=== PATIENT | female | born 1945 | race Caucasian/White ===

== ENCOUNTER 2018-01-11 16:17 | Outpatient (CLI) | payer MEDICARE, BC ==
[2018-01-11 16:43] LABS: BASOPHILS # (AUTO) 0.1 10^3/uL (0.0-0.1); BASOPHILS % (AUTO) 0.8 %; EOSINOPHILS # (AUTO) 0.3 10^3/uL (0.0-0.7); HGB - HEMOGLOBIN 14.3 g/dL (12.0-16.0); LYMPHOCYTES # (AUTO) 4.2 10^3/uL (1.5-3.5); LYMPHOCYTES % (AUTO) 36.1 %; MEAN CORPUSCULAR HEMOGLOBIN 28.6 pg (27.0-31.0); MEAN CORPUSCULAR HGB CONC 32.9 g/dL (32.0-36.0); MEAN CORPUSCULAR VOLUME 86.9 fL (81.0-99.0); MEAN PLATELET VOLUME 8.5 fL (7.9-10.8); MONOCYTES # (AUTO) 0.8 10^3/uL (0.0-1.0); MONOCYTES % (AUTO) 6.4 %; NEUTROPHILS # (AUTO) 6.3 10^3/uL (1.5-6.6); NEUTROPHILS % (AUTO) 53.7 %; PLT - PLATELET COUNT 268 10^3/uL (130-450); RED CELL DISTRIBUTION WIDTH 13.8 % (12.0-15.0); WHITE BLOOD COUNT 11.8 x10^3/uL (4.8-10.8)
[2018-01-11 16:56] LABS: ALBUMIN 3.5 g/dL (3.2-5.5); BILIRUBIN,TOTAL 0.7 mg/dL (0.2-1.0); CREATININE 0.9 mg/dL (0.4-1.0)
== END 2018-01-11 16:18 | disposition home or self-care (01) ==
LOC: LAB 16:17
PROVIDERS: ATTEND Physician Assistant
DX: J18.9 Pneumonia, unspecified organism (principal); R07.89 Other chest pain
CPT/HCPCS: 36415; 80053; 84484; 85025

== ENCOUNTER 2018-04-04 15:24 | Outpatient (CLI) | payer MEDICARE, BC ==
--- NOTE | 2018-04-05 12:15 | Mammography Report ---
Reason: SCREENING MAMMO Procedure Date: 04/04/2018 Accession Number: [id number] / [id number] Procedure: MGN - Screening Mammo Dig Bilat CPT Code: FULL RESULT: EXAM: Screening Mammo Dig Bilat DATE: 04/04/2018 3:45 PM CLINICAL HISTORY: 72-year-old female for screening mammogram. TECHNIQUE: Bilateral CC and MLO views were obtained. COMPARISON: 04/25/2016, 04/19/2015, 08/19/2013, 06/17/2010. FINDINGS: The breasts demonstrate scattered fibroglandular densities bilaterally. No suspicious masses, clustered microcalcifications, or regions of architectural distortion are identified. IMPRESSION: Negative examination RECOMMENDATION: Routine annual screening unless otherwise clinically indicated. BIRADS CATEGORY 1: Negative STANDARD QUALIFYING STATEMENTS: 1. This examination was reviewed with the aid of Computer-Aided Detection (CAD). 2. A negative or benign imaging report should not delay biopsy if clinically suspicious findings are present. Consider surgical consultation if warranted. More than 5% of cancers are not identified by imaging. 3. Dense breasts may obscure an underlying neoplasm. 4. This examination was reviewed without the aid of 3D breast imaging (tomosynthesis).
== END 2018-04-04 15:25 | disposition home or self-care (01) ==
LOC: DI.N 15:24
DX: Z12.31 Encounter for screening mammogram for malignant neoplasm of breast (principal)
CPT/HCPCS: 77067

== ENCOUNTER 2019-01-12 08:00 | Outpatient (CLI) | payer MEDICARE, BC ==
[2019-01-15 19:34] LABS: BASOPHILS # (AUTO) 0.1 10^3/uL (0.0-0.1); BASOPHILS % (AUTO) 0.9 %; EOSINOPHILS # (AUTO) 0.4 10^3/uL (0.0-0.7); EOSINOPHILS % (AUTO) 3.8 %; HGB - HEMOGLOBIN 14.6 g/dL (12.0-16.0); LYMPHOCYTES # (AUTO) 3.4 10^3/uL (1.5-3.5); LYMPHOCYTES % (AUTO) 30.7 %; MEAN CORPUSCULAR HEMOGLOBIN 29.1 pg (27.0-31.0); MEAN CORPUSCULAR HGB CONC 32.7 g/dL (32.0-36.0); MEAN PLATELET VOLUME 11.8 fL (7.9-10.8); MONOCYTES # (AUTO) 0.8 10^3/uL (0.0-1.0); MONOCYTES % (AUTO) 6.9 %; NEUTROPHILS # (AUTO) 6.3 10^3/uL (1.5-6.6); PLT - PLATELET COUNT 277 10^3/uL (130-450); RED BLOOD COUNT 5.01 10^6/uL (4.20-5.40); RED CELL DISTRIBUTION WIDTH 13.2 % (12.0-15.0); WHITE BLOOD COUNT 11.1 x10^3/uL (4.8-10.8)
[2019-01-15 19:54] LABS: ALBUMIN 3.5 g/dL (3.2-5.5); ALBUMIN/GLOBULIN RATIO 1.1 (1.0-2.2); ALKALINE PHOSPHATASE 101 IU/L (42-121); ALT ALANINE AMINOTRANSFERASE 15 IU/L (10-60); AST ASPARTATE AMINOTRANSFERASE 16 IU/L (10-42); BILIRUBIN,TOTAL < 0.2 mg/dL (0.2-1.0); BUN - BLOOD UREA NITROGEN 39 mg/dL (6-20); CALCIUM 8.6 mg/dL (8.5-10.3); CARBON DIOXIDE - CO2 24 mmol/L (21-32); CHLORIDE 99 mmol/L (101-111); CREATININE 1.6 mg/dL (0.4-1.0); GFR - MDRD 32 (>89); GLUCOSE 380 mg/dL (70-100); SODIUM 133 mmol/L (135-145); TOTAL PROTEIN 6.7 g/dL (6.7-8.2)
== END 2019-01-12 23:59 ==
LOC: LAB.R 08:00
PROVIDERS: ATTEND Physician Assistant
DX: R35.0 Frequency of micturition (principal)
CPT/HCPCS: 80053; 85025; 87086; 87181

== ENCOUNTER 2019-01-15 08:00 | Outpatient (CLI) | payer MEDICARE, BC | END 2019-01-15 23:59 | disposition home or self-care (01) | LOC: LAB.WCP 08:00 | PROVIDERS: ATTEND Physician Assistant | DX: R35.0 Frequency of micturition (principal) | CPT/HCPCS: 80053; 81002; 85025; 87086; 87181 ==

== ENCOUNTER 2019-01-22 09:00 | Outpatient (CLI) | payer MEDICARE, BC ==
[2019-01-22 19:11] LABS: CALCIUM 9.1 mg/dL (8.5-10.3); CREATININE 1.3 mg/dL (0.4-1.0)
== END 2019-01-22 23:59 | disposition home or self-care (01) ==
LOC: LAB.WCP 09:00
PROVIDERS: ATTEND Physician Assistant
DX: N39.0 Urinary tract infection, site not specified (principal)
CPT/HCPCS: 36415; 80048

== ENCOUNTER 2019-02-19 14:00 | Outpatient (CLI) | payer MEDICARE, BC ==
[2019-02-19 18:37] LABS: BILIRUBIN,URINE NEGATIVE (NEGATIVE); GLUCOSE, URINE (UA) 100 mg/dL (NEGATIVE); KETONES,URINE (UA) NEGATIVE (NEGATIVE); LEUKOCYTE ESTERASE, URINE TRACE (NEGATIVE); NITRITE,URINE POSITIVE (NEGATIVE); OCCULT BLOOD,URINE SMALL (NEGATIVE); PH,URINE 5.5 PH (5.0-7.5); PROTEIN,URINE >=300 mg/dL (NEGATIVE); UROBILINOGEN,URINE 0.2 (NORMAL) E.U./dL (NORMAL)
[2019-02-19 18:51] LABS: CLARITY,URINE HAZY (CLEAR)
[2019-02-19 18:52] LABS: BACTERIA,URINE Many /HPF (None Seen); RBC,URINE None Seen /HPF (0-5); SQUAMOUS EPITHELIAL CELL,UR RARE Squamous (<= Few)
== END 2019-02-19 23:59 | disposition home or self-care (01) ==
LOC: LAB.R 14:00
PROVIDERS: ATTEND Physician Assistant Medical
DX: N39.0 Urinary tract infection, site not specified (principal)
CPT/HCPCS: 81001; 81003; 87086; 87181

== ENCOUNTER 2019-03-14 08:00 | Outpatient (CLI) | payer MEDICARE, BC | END 2019-03-14 23:59 | disposition home or self-care (01) | LOC: LAB.R 08:00 | PROVIDERS: ATTEND Physician Assistant | DX: N39.0 Urinary tract infection, site not specified (principal) | CPT/HCPCS: 81002; 87086 ==

== ENCOUNTER 2020-04-27 16:30 | Outpatient (CLI) | payer MEDICARE, BC ==
[2020-04-27 20:05] LABS: CREATININE,URINE 94.6 mg/dL; MICROALBUM/CREATININE RATIO,UR 4274.8 ug/mg (<30.0); MICROALBUMIN,URINE 404.4 mg/dL (0-300.0)
[2020-04-27 20:22] LABS: ESTIMATED AVERAGE GLUCOSE 200 mg/dL (70-100); HEMOGLOBIN A1c% 8.6 % (4.27-6.07)
== END 2020-04-27 23:59 | disposition home or self-care (01) ==
LOC: LAB.WCP 16:30
PROVIDERS: ATTEND Physician Assistant Medical
DX: E11.65 Type 2 diabetes mellitus with hyperglycemia (principal); R35.0 Frequency of micturition
CPT/HCPCS: 36415; 82043; 82570; 83036; 87086; 87181

== ENCOUNTER 2020-05-21 09:40 | Outpatient (CLI) | payer MEDICARE, BC | END 2020-05-21 23:59 | disposition home or self-care (01) | LOC: LAB.R 09:40 | PROVIDERS: ATTEND Physician Assistant Medical | DX: N39.0 Urinary tract infection, site not specified (principal) | CPT/HCPCS: 87086; 87181 ==

== ENCOUNTER 2020-05-31 11:40 | Outpatient (CLI) | payer MEDICARE, BC | END 2020-05-31 11:41 | disposition critical access hospital (66) | LOC: EMS 11:40 | PROVIDERS: ATTEND Surgery | DX: R55 Syncope and collapse (principal) | CPT/HCPCS: A0425; A0429 ==

== ENCOUNTER 2020-05-31 12:01 | Emergency (ER) | payer MEDICARE, BC ==
[2020-05-31] MEDS ORDERED: PROMETHAZINE INJ 12.5 MG in SODIUM CHLORIDE 0.9% 50 ML IV STA (12:50)
[2020-05-31] MEDS ORDERED: SODIUM CHLORIDE 0.9% 1,000 ML IV STA ×2 (13:00→14:27)
--- NOTE | 2020-05-31 13:03 | ED Physician Documentation ---
History of Present Illness - Stated complaint Stated Complaint: SYNCOPE - Chief complaint Chief Complaint: Cardiac - History obtained from History obtained from: Patient - History of Present Illness Timing: Yesterday Pain level max: 2 Pain level now: 1 - Additonal information Additional information: 74 year old female with a syncopal event last night at home. She states she has had nausea and vomiting for the past several days. Decreased oral intake. States stood up in her kitchen and passed out. Similar to prior events. no chest pain. no palpitations. no head, neck, back pain. no numbness or tingling. Patient took carvedilol yesterday for the first time as well. She is currently being treated for a UTI. Review of Systems Ten Systems: 10 systems reviewed and negative Constitutional: denies: Fever, Chills Ears: denies: Ear pain, Drainage/discharge Nose: denies: Rhinorrhea / runny nose, Congestion Cardiac: denies: Chest pain / pressure Respiratory: denies: Cough GI: reports: Nausea, Vomiting. denies: Abdominal Pain, Abdominal Swelling : denies: Dysuria Skin: denies: Rash Musculoskeletal: denies: Neck pain, Back pain Neurologic: denies: Headache PD PAST MEDICAL HISTORY - Past Medical History Cardiovascular: Hypertension Respiratory: None Endocrine/Autoimmune: Type 2 diabetes, HyPOthyroidism : None HEENT: Other Musculoskeletal: None Derm: None Other Past Medical History: [place] - Past Surgical History Past Surgical History: Yes General: Colonoscopy /HOME HEALTH CARE PROVIDER: Hysterectomy HEENT: Tonsil/Adenoidectomy - Present Medications Home Medications: Ambulatory Orders Medication Instructions Recorded Confirmed Insulin Aspart (Vial) [NovoLOG] 12 - 18 unit SUBQ AC 04/23/14 05/31/20 Levothyroxine [Synthroid] 75 mcg PO QDAC 04/23/14 05/31/20 Losartan [Cozaar] 100 mg PO DAILY 04/23/14 05/31/20 Insulin Glargine/Lixisenatide 45 unit SUBQ DAILY 09/02/18 05/31/20 [Soliqua 100 Unit-33 Mcg/ml Pen] Carvedilol [Coreg] 6.25 mg PO BID 05/31/20 05/31/20 Promethazine [Phenergan] 25 mg PO Q6H PRN #14 tablet 05/31/20 Sulfamethox/Trimeth 800/160 1 tab PO BID 05/31/20 05/31/20 [Bactrim Ds] amLODIPine [Norvasc] 5 mg PO BID 05/31/20 05/31/20 - Allergies Allergies/Adverse Reactions: Allergies Allergy/AdvReac Type Severity Reaction Status Date / Time amoxicillin trihydrate * Allergy Nausea Verified 04/23/14 07:10 [From Augmentin] ciprofloxacin [From Cipro] Allergy Unknown Verified 09/02/18 17:14 codeine Allergy Hallucinati Verified 04/23/14 07:10 ons potassium clavulanate * Allergy Nausea Verified 04/23/14 07:10 [From Augmentin] metformin AdvReac Intermediate Nausea Verified 09/02/18 17:14 - Social History Does the pt smoke?: No Smoking Status: Never smoker Does the pt drink ETOH?: No Does the pt have substance abuse?: No - Immunizations Immunizations are current?: Yes PD ED PE NORMAL - Vitals Vital signs reviewed: Yes - General General: Alert and oriented X 3, No acute distress - HEENT HEENT: Moist mucous membranes - Neck Neck: Supple, no meningeal sign, No JVD, No bruit - Cardiac Cardiac: RRR, No murmur, Strong equal pulses - Respiratory Respiratory: No respiratory distress, Clear bilaterally - Abdomen Abdomen: Soft, Non tender, Non distended - Derm Derm: Warm and dry - Extremities Extremities: No edema - Neuro Neuro: Alert and oriented X 3 - Psych Psych: Normal mood, Normal affect Results - Vitals Vitals: Vital Signs - 24 hr 05/31/20 05/31/20 05/31/20 12:04 14:05 16:00 Temperature 36.8 C Heart Rate 69 69 69 Respiratory 16 23 20 Rate Blood Pressure 162/68 H 140/70 H 161/75 H O2 Saturation 96 100 95 05/31/20 16:16 Temperature 36.3 C L Heart Rate Respiratory Rate Blood Pressure O2 Saturation Oxygen O2 Source Room air - EKG (time done) 1217 Rate: Rate (enter#) (69) Rhythm: NSR [place]: Normal Intervals: Normal [place] QRS: Normal Ischemia: Normal ST segments, Q waves (III, aVF, V2-4) - Labs Labs: Laboratory Tests 05/31/20 05/31/20 05/31/20 13:23 13:23 13:23 WBC 10.0 RBC 4.26 Hgb 12.3 Hct 37.9 MCV 89.0 MCH 28.9 MCHC 32.5 RDW 13.2 Plt Count 233 MPV 10.2 Neut # (Auto) Not Reportable Lymph # (Auto) Not Reportable Real # (Auto) Not Reportable Eos # (Auto) Not Reportable Baso # (Auto) Not Reportable Absolute Nucleated RBC Not Reportable Total Counted 100 Band Neuts % (Manual) 1 Abnorm Lymph % (Manual) 0 Nucleated RBC % Not Reportable Neutrophils # (Manual) 6.8 H Lymphocytes # (Manual) 1.6 Monocytes # (Manual) 0.2 Eosinophils # (Manual) 1.4 H Basophils # (Manual) 0.0 WBC Morphology NORMAL APPEARANCE Platelet Estimate NORMAL (130-450,000) Platelet Morphology NORMAL APPEARANCE RBC Morph Micro Appear NORMAL APPEARANCE Sodium 137 Potassium 4.5 Chloride 104 Carbon Dioxide 21 Anion Gap 12.0 BUN 30 H Creatinine 2.2 H Estimated GFR (MDRD) 22 L Glucose 214 H Calcium 8.6 Total Bilirubin 0.4 AST 19 ALT 19 Alkaline Phosphatase 72 Troponin I High Sens 8.4 Total Protein 6.8 Albumin 3.1 L Globulin 3.7 Albumin/Globulin Ratio 0.8 L Lipase 33 Urine Color Urine Clarity Urine pH Ur Specific [place] Urine Protein Urine Glucose (UA) Urine Ketones Urine Occult Blood Urine Nitrite Urine Bilirubin Urine Urobilinogen Ur Leukocyte Esterase Urine RBC Urine WBC Ur Squamous Epith Cells Urine Bacteria Urine Casts Urine Mucus Ur Microscopic Review Urine Culture Comments 05/31/20 15:30 WBC RBC Hgb Hct MCV MCH MCHC RDW Plt Count MPV Neut # (Auto) Lymph # (Auto) Real # (Auto) Eos # (Auto) Baso # (Auto) Absolute Nucleated RBC Total Counted Band Neuts % (Manual) Abnorm Lymph % (Manual) Nucleated RBC % Neutrophils # (Manual) Lymphocytes # (Manual) Monocytes # (Manual) Eosinophils # (Manual) Basophils # (Manual) WBC Morphology Platelet Estimate Platelet Morphology RBC Morph Micro Appear Sodium Potassium Chloride Carbon Dioxide Anion Gap BUN Creatinine Estimated GFR (MDRD) Glucose Calcium Total Bilirubin AST ALT Alkaline Phosphatase Troponin I High Sens Total Protein Albumin Globulin Albumin/Globulin Ratio Lipase Urine Color YELLOW Urine Clarity HAZY Urine pH 5.5 Ur Specific [place] >=1.030 H Urine Protein >=300 H Urine Glucose (UA) 250 H Urine Ketones NEGATIVE Urine Occult Blood MODERATE H Urine Nitrite NEGATIVE Urine Bilirubin NEGATIVE Urine Urobilinogen 0.2 (NORMAL) Ur Leukocyte Esterase NEGATIVE Urine RBC 6-10 H Urine WBC 0-3 Ur Squamous Epith Cells MOD Squamous H Urine Bacteria Moderate H Urine Casts 0-2 Hyaline Casts Urine Mucus Moderate Strands Ur Microscopic Review INDICATED Urine Culture Comments NOT INDICATED - Rads (name of study) cxr Radiology: Prelim report reviewed, EMP read contemporaneously, See rad report (Mildly reduced inspiratory volume, no pneumonia found, source of chest pain is not seen. ) PD MEDICAL DECISION MAKING - ED course Complexity details: reviewed results, re-evaluated patient, considered differential, d/w patient ED course: Female with a syncopal event last night. Appears to be significantly dehydrated. Given IV fluids. Feels much better. Tolerating p.o. without difficulty here. Her UTI appears to be resolving, urinalysis here appears contaminated. No evidence of arrhythmia. We will have her creatinine rechecked this week with her doctor. Given 2 L of fluid here. Ambulating without difficulty. No chest pain. No shortness of breath. Patient counseled reg arding signs and symptoms for which I believe and urgent re-evaluation would be necessary. Patient with good understanding of and agreement to plan and is comfortable going home at this time This document was made in part using voice recognition software. While efforts are made to proofread this document, sound alike and grammatical errors may occur. Departure - Departure Disposition: 01 Home, Self Care Clinical Impression: Dehydration, Acute renal insufficiency Syncope Qualifiers: Syncope type: unspecified Qualified Code(s): R55 - Syncope and collapse Condition: Good Instructions: ED Dehydration, ED Syncope Vasovagal Follow-Up: Mehreen Brody PA-C [Primary Care Provider] - Within 1 week Prescriptions: Promethazine [Phenergan] 25 mg PO Q6H PRN #14 tablet PRN Reason: nausea Comments: Drink plenty of water. Follow-up with your doctor later this week to have your creatinine and electrolytes rechecked. Return if you worsen.
--- NOTE | 2020-05-31 13:11 | XRAY Report ---
PROCEDURE: Chest 1 View X-Ray INDICATIONS: Chest Pain TECHNIQUE: One view of the chest was acquired. COMPARISON: 2 view chest 01/11/2018 FINDINGS: Surgical changes and devices: None. Lungs and pleura: No pleural effusions or pneumothorax. Lungs are clear. Mediastinum: Mediastinal contours appear normal. Heart size is normal. Bones and chest wall: No suspicious bony lesions. Overlying soft tissues appear unremarkable. IMPRESSION: Mildly reduced inspiratory volume, no pneumonia found, source of chest pain is not seen. Reviewed by: Isra Morgan MD on 05/31/2020 1:10 PM PST Approved by: Isra Morgan MD on 05/31/2020 1:10 PM PST Station ID: [id number]
[2020-05-31 13:31] LABS: BASOPHILS % (AUTO) 0.4 %; EOSINOPHILS % (AUTO) 13.5 %; HGB - HEMOGLOBIN 12.3 g/dL (12.0-16.0); LYMPHOCYTES % (AUTO) 17.7 %; MEAN CORPUSCULAR HEMOGLOBIN 28.9 pg (27.0-31.0); MEAN CORPUSCULAR HGB CONC 32.5 g/dL (32.0-36.0); MEAN PLATELET VOLUME 10.2 fL (7.9-10.8); MONOCYTES % (AUTO) 8.8 %; NEUTROPHILS % (AUTO) 58.6 %; PLT - PLATELET COUNT 233 10^3/uL (130-450); RED BLOOD COUNT 4.26 10^6/uL (4.20-5.40); RED CELL DISTRIBUTION WIDTH 13.2 % (12.0-15.0)
[2020-05-31 13:37] LABS: ABNORMAL LYMPHS % (MANUAL) 0 %
[2020-05-31 13:48] LABS: ALBUMIN 3.1 g/dL (3.2-5.5); ALBUMIN/GLOBULIN RATIO 0.8 (1.0-2.2); BILIRUBIN,TOTAL 0.4 mg/dL (0.2-1.0); CALCIUM 8.6 mg/dL (8.5-10.3); CREATININE 2.2 mg/dL (0.4-1.0); TOTAL PROTEIN 6.8 g/dL (6.7-8.2)
[2020-05-31 13:53] LABS: BAND NEUTROPHILS % (MANUAL) 1 %; EOSINOPHILS # (MANUAL) 1.4 10^3/uL (0-0.7); LYMPHOCYTES # (MANUAL) 1.6 10^3/uL (1.5-3.5); LYMPHOCYTES % (MANUAL) 16 %; MONOCYTES # (MANUAL) 0.2 10^3/uL (0.0-1.0); PLATELET ESTIMATE, MANUAL NORMAL (130-450,000) (NORMAL); PLATELET MORPHOLOGY NORMAL APPEARANCE (NORMAL); RBC MORPHOLOGY (MULTIPLE) NORMAL APPEARANCE (NORMAL)
[2020-05-31 15:43] LABS: BILIRUBIN,URINE NEGATIVE (NEGATIVE); GLUCOSE, URINE (UA) 250 mg/dL (NEGATIVE); KETONES,URINE (UA) NEGATIVE (NEGATIVE); LEUKOCYTE ESTERASE, URINE NEGATIVE (NEGATIVE); NITRITE,URINE NEGATIVE (NEGATIVE); OCCULT BLOOD,URINE MODERATE (NEGATIVE); PH,URINE 5.5 PH (5.0-7.5); PROTEIN,URINE >=300 mg/dL (NEGATIVE); UROBILINOGEN,URINE 0.2 (NORMAL) E.U./dL (NORMAL)
[2020-05-31 15:44] LABS: CLARITY,URINE HAZY (CLEAR)
[2020-05-31 15:55] LABS: BACTERIA,URINE Moderate /HPF (None Seen); SQUAMOUS EPITHELIAL CELL,UR MOD Squamous (<= Few)
[2020-05-31 15:56] LABS: MUCUS,URINE Moderate Strands
[2020-05-31 16:14] VITALS: BP 161/75
== END 2020-05-31 16:48 | disposition home or self-care (01) ==
LOC: EDUNIT# → ED 12:01
DX: N28.9 Disorder of kidney and ureter, unspecified (principal); E86.0 Dehydration; I10 Essential (primary) hypertension; E11.65 Type 2 diabetes mellitus with hyperglycemia; Z79.4 Long term (current) use of insulin
CPT/HCPCS: 36415; 71045; 80053; 81001; 83690; 84484; 85025; 93005; 96365; 99284; J7040; 81003; 87086

== ENCOUNTER 2020-08-31 09:14 | Outpatient (CLI) | payer MEDICARE, BC | END 2020-08-31 09:15 | disposition home or self-care (01) | LOC: DI 09:14 | PROVIDERS: ATTEND Physician Assistant Medical | DX: R55 Syncope and collapse (principal); I51.89 Other ill-defined heart diseases | CPT/HCPCS: 93306 ==

== ENCOUNTER 2020-09-16 14:58 | Outpatient (CLI) | payer MEDICARE, BC ==
[2020-09-16 15:59] VITALS: BP 142/78
--- NOTE | 2020-09-16 15:59 | SLEEP CARE CONSULTATION ---
Information from patient questionnaire entered by Kem Sood. I have reviewed and concur with the information entered by Kem Sood. This document represents the service I personally performed and the decisions made by me, Arelis Briceño ARNP. History of Present Illness Service Date and Time: 09/16/2020 0822 Reason for Visit: New patient Chief Complaint: reports: Unrefreshed sleep (slow starter in the morning), Snoring (possible but she is and has no roommates), Fatigue, Other (I don't know). denies: Insomnia, Excessive daytime sleepiness, Observed pauses in breathing, Frequent awakenings at night Usual bedtime: 11:00 PM Time it takes to fall asleep: Not long Snores at night: No Observed to quit breathing while asleep: No Sleeps alone due to snoring: No Number of times waking at night: Usually 2 Reasons for waking at night: reports: Bathroom Toss, Turn, or Twitch while sleeping: No Recalls having dreams: Yes Usually gets out of bed at: 7:00 - 8:00 Feels refreshed in the morning: Yes (not all the time) Morning headache: No Sleepy or fatigued during the day: Yes Ever fallen asleep while driving: No Takes day naps: Yes (2-3 times a week for about 30 minutes) Dreams during day naps: Yes (Sometimes) Prior sleep studies: No Additional HPI information: I had the pleasure of seeing MILADYS SEQUEIRA today regarding the possibility of her having a sleep disorder. Her current complaints are some unrefreshed sleep, possible snoring and fatigue. She has recent diagnosis of enlarged right side of heart and pulmonary hypertension. She was then referred here and she tells me she did not know why. She is so she is not sure about snoring but thinks she may. She is always fatigued and is slow to move in the mornings. She is not sure if it is not feeling rested or just slow to wake up. She states she normally does not take a nap during the day and denies excessive daytime sleepiness. She states her father snored but was never evaluated for sleep apnea. - Parasomnia Symptoms Ever been unable to move upon waking from sleep: No Walks in sleep: No Talks in sleep: No Ever acted out dreams in sleep: No Ever felt weak in the knees when startled or emotional: No Bothered by creepy, crawly, restless sensations in legs: No Problems with memory or concentration: Yes (Concentration, reading comprehension bad; no memory issues) Subjective Initial [place] Sleepiness Scale score: 5 (in 2020) Past Medical History Past Medical History: reports: Hypertension, Diabetes, Other (meniere's disease (vertigo)) Social History The patient's occupation is a retiree. Patient is and lives in [place]. Have you smoked in the past 12 months: No Alcohol use: No Caffeine use: Yes Caffeine amount and frequency: 1-2 cups tea Family History Family history of sleep disordered breathing: Yes Family Hx Sleep Apnea: Father: Snoring Allergies and Home Medications Drug allergies reviewed: Yes (multiple as listed in chart) Home medication list reviewed: Yes Allergy and home medication list: Soliqua Novalog levothyroxine Losartan Amlodipine Carvedilol diuretic Review of Systems Weight gain over past 5 years: 15 Cardiovascular: reports: high blood pressure, leg or foot swelling Respiratory: reports: shortness of breath, wheeze Urinary: reports: frequency, urgency Neurological: reports: fainting or unconsciousness Psychiatric: reports: depression Ear/Nose/Throat: reports: tonsillectomy, wisdom teeth removed Endocrine: reports: thyroid disease, too hot or cold, increased urination Immunologic: reports: sneezing (runny nose), itching, allergies to food or environment Physical Exam Blood Pressure: 142/78 Cuff size: long Heart Rate: 81 O2 Saturation: 96 Height: 5 ft 4 in Weight: 230 lb Body Mass Index: 39.4 BMI Classification: Obese Neck circumference: 16.5 (inches) Nostrils: patent to airflow Mouth and throat: narrow oropharynx Soft palate: long Hard palate: normal Uvula visualization: 25% Mallampati Class III Tongue: enlarged in size with teeth chapman on lateral edges Tonsils: absent bilaterally Neck: normal w/o lymphadenopathy or thyromegaly Heart: regular rate and rhythm Lungs: clear bilaterally Impression and Plan 1. Suspected Obstructive Sleep Apnea-Hypopnea Syndrome, as suggested by a history of possible snoring, unrefreshed sleep, and cognitive impairment. Narrow oropharynx and obesity are common predisposing factors for obstructive sleep apnea-hypopnea syndrome. I recommend proceeding to polysomnography to confirm the diagnosis and to assess severity. If the patient has significant sleep disordered breathing, a manual CPAP titration study will also be performed to find the optimal treatment pressure. I informed the patient of what the sleep studies involve and after some discussion, obtained agreement to proceed. The pathophysiology of obstructive sleep apnea-hypopnea syndrome was discussed with the patient and health risks of cardiovascular and cerebrovascular disease if not treated. Risks of drowsy driving discussed in detail and patient advised to avoid long distance driving and to machine puller at the first sign of drowsiness. Patient agreed to plan. * Schedule polysomnography +- manual CPAP titration study and return in 1-2 weeks after the study to discuss result and initiate therapy. * Avoid long distance driving or driving when feeling sleepy. * Avoid alcohol, sedative and muscle relaxant around bedtime. * Attempt to lose weight. * Review instructions provided by trained office staff on how to prepare for the sleep study. * Return for follow-up after sleep study completed. Counseling Topics: Weight loss health impact Visit Type: In Office Time Spent with Patient (minutes): 33 Provider Statement: I spent 100% of the Face to Face Visit with the patient with greater than 50% spent counseling the patient and coordination of care.
== END 2020-09-16 14:59 | disposition home or self-care (01) ==
LOC: SC 14:58
PROVIDERS: ATTEND Nurse Practitioner Family
DX: G47.8 Other sleep disorders (principal); R41.89 Other symptoms and signs involving cognitive functions and awareness; E66.9 Obesity, unspecified; Z68.39 Body mass index [BMI] 39.0-39.9, adult
CPT/HCPCS: 99203; G0463; 99212

== ENCOUNTER 2020-10-10 16:46 | Outpatient (CLI) | payer MEDICARE, BC ==
--- NOTE | 2020-10-10 17:57 | Ultrasound Report ---
PROCEDURE: Retroperitoneal INDICATIONS: STAGE 3 KIDNEY DYSFUNCTION TECHNIQUE: Real-time scanning was performed of the retroperitoneal organs, with image documentation. COMPARISON: None. FINDINGS: Kidneys: Kidneys are normal in size. Right kidney measures 11.9 cm long; left kidney measures 13 cm long. Right renal cortical thickness is 1.7 cm; left renal cortical thickness is 1.9 cm. No solid masses, hydronephrosis, or nephrolithiasis. Bladder: The prevoid bladder volume is 137 cc. The post void bladder volume is 0 cc. Both ureteral j ets can be seen. Miscellaneous: No free abdominal fluid. IMPRESSION: Unremarkable kidneys, without hydronephrosis. No postvoid residual. Simple appearing left renal cysts are incidentally noted. Reviewed by: Duarte London MD on 10/10/2020 4:55 PM AKANDREW Approved by: Duarte London MD on 10/10/2020 4:55 PM ABRAHAM Station ID: [id number]
== END 2020-10-10 16:47 | disposition home or self-care (01) ==
LOC: DI 16:46
PROVIDERS: ATTEND Physician Assistant Medical
DX: N18.31 Chronic kidney disease, stage 3a (principal); N28.1 Cyst of kidney, acquired

== ENCOUNTER 2020-12-06 16:40 | Outpatient (CLI) | payer MEDICARE, BC ==
--- NOTE | 2020-12-07 14:11 | XRAY Report ---
PROCEDURE: Chest 2 View X-Ray INDICATIONS: ACUTE BRONCHITIS TECHNIQUE: 2 view(s) of the chest. COMPARISON: Single view chest 05/31/2020. FINDINGS: Surgical changes and devices: None. Lungs and pleura: No pleural effusions or pneumothorax. Lungs are free of pneumonia. Mediastinum: Mediastinal contours are normal. Heart size is at the upper limits of normal. Bones and chest wall: No suspicious bony abnormalities. Soft tissues appear unremarkable. IMPRESSION: Heart size is at the upper limits of normal, no definite pneumonia or CHF found. Reviewed by: Isra Morgan MD on 12/07/2020 2:10 PM PDT Approved by: Isra Morgan MD on 12/07/2020 2:10 PM PDT Station ID: [id number]
== END 2020-12-06 23:59 | disposition home or self-care (01) ==
LOC: DI.N 16:40
PROVIDERS: ATTEND Physician Assistant Medical
DX: J20.9 Acute bronchitis, unspecified (principal); Z20.822 Contact with and (suspected) exposure to COVID-19
CPT/HCPCS: 71046; U0004

== ENCOUNTER 2021-01-12 19:30 | Outpatient (CLI) | payer MEDICARE, BC | END 2021-01-12 19:31 | disposition home or self-care (01) | LOC: SC 19:30 | PROVIDERS: ATTEND Nurse Practitioner Family | DX: G47.33 Obstructive sleep apnea (adult) (pediatric) (principal); E11.9 Type 2 diabetes mellitus without complications; I10 Essential (primary) hypertension; E66.9 Obesity, unspecified; Z68.39 Body mass index [BMI] 39.0-39.9, adult | CPT/HCPCS: 95810 ==

== ENCOUNTER 2021-01-26 14:27 | Outpatient (CLI) | payer MEDICARE, BC ==
--- NOTE | 2021-01-26 15:07 | SLEEP CARE CONSULTATION ---
Information from patient questionnaire entered by Madelin Wyman. I have reviewed and concur with the information entered by Madelin Wyman. This document represents the service I personally performed and the decisions made by , Arelis Briceño ARNP. History of Present Illness Service Date and Time: 01/26/2021 142 Initial [place] Sleepiness Scale score: 5 (in 2020) Current [place] Sleepiness Scale score: 5 Additional HPI information: MILADYS SEQUEIRA returns for follow up and results of the recently performed polysomnography. I explained the pathophysiology behind obstructive sleep apnea. We then spent quite a bit of time discussing different treatment options. For mild obstructive sleep apnea, surgery and oral appliance are alternatives to nasal CPAP therapy but in moderate or severe cases, nasal CPAP is the most effective and reliable treatment. Because apnea is primarily in non-supine position, then positional management therapy could be effective. Methods discussed such as positioning with pillows to avoid sleeping on her sides. I reviewed the impact of weight changes on sleep apnea and strongly recommended losing weight. AAS patient education PAP tips and Non Pap treatment pamphlets reviewed and given to patient. Patient was cautioned about risks of drowsy driving until sleepiness symptoms resolve. Sleep Study - Results Type of Sleep Study: Polysomnography Prior sleep studies: No Polysomnography/Home Sleep Study results: IMPRESSION: The quality of the study is good. The patient had reduced sleep efficiency due to a prolonged awakening in the second half of the study.. The sleep architecture was abnormal for sleep fragmentation and reduced amount of time spent in REM sleep. Respiratory monitoring showed mild obstructive sleep apnea-hypopnea (AHI = 11.0) associated with frequent arousals, oxyhemoglobin desaturation and moderate hypoxia (deidra oxygen saturation of 76%). Baseline oxygen saturation was low-normal at 91%. The respiratory events occurred mainly during REM sleep (supine AHI = 4.0; non-supine = 13.05). Snore was light to moderate in intensity. There was no significant periodic leg movement of sleep. Cardiac rhythm was normal sinus rhythm without significant arrhythmia. No abnormal behavior (parasomnia) observed during the night. Allergies and Home Medications Home medication list reviewed: Yes (no changes) Review of Systems Review of systems same as previous: Yes (no changes) Physical Exam Heart Rate: 73 O2 Saturation: 96 Height: 5 ft 4 in Weight: 234 lb Body Mass Index: 40.1 BMI Classification: Morbidly Obese Impression and Plan 1. Obstructive Sleep Apnea-Hypopnea Syndrome, mild, with lowest oxygen saturation of 76%. Positive pressure therapy could benefit hypertension and diabetes. Patient would like to complete the cardiac workup and follow up with her produce wrapper before deciding upon a treatment plan for her mild RADHA. Since patients apnea is primarily in non-supine position, patient advised to try positional therapy while she is finishing her cardiac workup before deciding upon therapy. She is also advised to lose weight as this will reduce snoring and apnea. An oral appliance can also be used for snoring but often is not covered by insurance. 2. Hypoxemia, moderate, with a deidra oxygen saturation of 76%. Her baseline oxygen saturation was low-normal at 91%. * Positional therapy while making her decision after seeing produce wrapper. * Attempt to lose weight. * Avoid alcohol consumption near bedtime. * The patient is again cautioned about driving until sleepiness completely resolves. * Follow up determined by therapy, patient to call to make follow up appointment Counseling Topics: Weight loss health impact Visit Type: In Office Time Spent with Patient (minutes): 23 Provider Statement: I spent 100% of the Face to Face Visit with the patient with greater than 50% spent counseling the patient and coordination of care.
== END 2021-01-26 14:28 | disposition home or self-care (01) ==
LOC: SC 14:27
PROVIDERS: ATTEND Nurse Practitioner Family
DX: G47.33 Obstructive sleep apnea (adult) (pediatric) (principal); E66.01 Morbid (severe) obesity due to excess calories; Z68.41 Body mass index [BMI] 40.0-44.9, adult; R09.02 Hypoxemia
CPT/HCPCS: 99213; G0463; 99212

== ENCOUNTER 2021-02-03 10:55 | Outpatient (CLI) | payer MEDICARE, BC ==
--- NOTE | 2021-02-07 09:37 | Mammography Report ---
BILATERAL DIGITAL SCREENING MAMMOGRAM 3D/2D: 02/03/2021 CLINICAL: Routine screening. Comparison is made to exams dated: 04/04/2018 mammogram, 04/25/2016 mammogram, 04/19/2015 mammogram, 08/19/2013 mammogram, and 06/17/2010 mammogram - [facility]. The tissue of both breas ts is predominantly fatty. No significant masses, calcifications, or other findings are seen in either breast. There has been no significant interval change. IMPRESSION: NEGATIVE There is no mammographic evidence of malignancy. A 1 year screening mammogram is recommended. This exam was interpreted at Station ID: [id number]. NOTE: For mammograms, a report in lay terms will be sent to the patient. Approximately 15% of breast malignancies will not be visualized mammographically. In the management of a palpable breast mass, a negative mammogram must not discourage biopsy of a clinically suspicious lesion. Electronically Signed By: Marco Valle M.D., jr/penrad:02/03/2021 13:25:28 ACR BI-RADS Category 1: Negative 3341F PARENCHYMAL PATTERN: (F) - The breast(s) demonstrate(s) diffuse fatty replacement. BI-RADS CATEGORY: (1) - 1 RECOMMENDATION: (ANNUAL) - Recommend routine annual screening mammography. [id number] 1 year screening LATERALITY: (B)
== END 2021-02-03 10:56 | disposition home or self-care (01) ==
LOC: DI.N 10:55
DX: Z12.31 Encounter for screening mammogram for malignant neoplasm of breast (principal)

== ENCOUNTER 2021-11-11 13:16 | Outpatient (CLI) | payer MEDICARE, BC ==
[2021-11-11] MEDS ORDERED: ALBUTEROL 1 PUFF INH STA (16:16)
== END 2021-11-11 13:17 | disposition home or self-care (01) ==
LOC: RT 13:16
PROVIDERS: ATTEND Physician Assistant Medical
DX: R06.09 Other forms of dyspnea (principal)
CPT/HCPCS: 94060; 94729

== ENCOUNTER 2022-09-02 08:00 | Outpatient (CLI) | payer MEDICARE, BC ==
[2022-09-02 12:20] LABS: BASOPHILS # (AUTO) 0.1 10^3/uL (0.0-0.1); BASOPHILS % (AUTO) 1.1 %; EOSINOPHILS # (AUTO) 0.4 10^3/uL (0.0-0.7); EOSINOPHILS % (AUTO) 5.4 %; HCT - HEMATOCRIT 34.1 % (37.0-47.0); HGB - HEMOGLOBIN 10.6 g/dL (12.0-16.0); LYMPHOCYTES # (AUTO) 1.1 10^3/uL (1.5-3.5); LYMPHOCYTES % (AUTO) 16.2 %; MEAN CORPUSCULAR HGB CONC 31.1 g/dL (32.0-36.0); MEAN CORPUSCULAR VOLUME 90.2 fL (81.0-99.0); MEAN PLATELET VOLUME 10.9 fL (7.9-10.8); MONOCYTES # (AUTO) 0.9 10^3/uL (0.0-1.0); MONOCYTES % (AUTO) 12.4 %; NEUTROPHILS # (AUTO) 4.5 10^3/uL (1.5-6.6); PLT - PLATELET COUNT 99 10^3/uL (130-450); RED BLOOD COUNT 3.78 10^6/uL (4.20-5.40); RED CELL DISTRIBUTION WIDTH 14.6 % (12.0-15.0)
[2022-09-02 12:39] LABS: CALCIUM 8.6 mg/dL (8.5-10.3); CREATININE 3.7 mg/dL (0.4-1.0)
[2022-09-02 14:16] LABS: ESTIMATED AVERAGE GLUCOSE 128 mg/dL (70-100); HEMOGLOBIN A1c% 6.1 % (4.27-6.07)
== END 2022-09-02 23:59 | disposition home or self-care (01) ==
LOC: LAB.R 08:00
PROVIDERS: ATTEND Registered Nurse
DX: I10 Essential (primary) hypertension (principal); E11.22 Type 2 diabetes mellitus with diabetic chronic kidney disease; E03.9 Hypothyroidism, unspecified; R56.9 Unspecified convulsions
CPT/HCPCS: 80048; 80177; 83036; 84443; 85025

== ENCOUNTER 2022-09-04 08:00 | Outpatient (CLI) | payer MEDICARE, BC ==
[2022-09-04 19:25] LABS: BASOPHILS # (AUTO) 0.1 10^3/uL (0.0-0.1); BASOPHILS % (AUTO) 0.5 %; EOSINOPHILS % (AUTO) 0.2 %; HCT - HEMATOCRIT 32.8 % (37.0-47.0); HGB - HEMOGLOBIN 10.6 g/dL (12.0-16.0); LYMPHOCYTES # (AUTO) 0.9 10^3/uL (1.5-3.5); LYMPHOCYTES % (AUTO) 4.9 %; MEAN CORPUSCULAR HEMOGLOBIN 28.5 pg (27.0-31.0); MEAN CORPUSCULAR HGB CONC 32.3 g/dL (32.0-36.0); MEAN CORPUSCULAR VOLUME 88.2 fL (81.0-99.0); MEAN PLATELET VOLUME 9.3 fL (7.9-10.8); MONOCYTES # (AUTO) 1.1 10^3/uL (0.0-1.0); MONOCYTES % (AUTO) 5.9 %; NEUTROPHILS # (AUTO) 16.3 10^3/uL (1.5-6.6); NEUTROPHILS % (AUTO) 87.6 %; PLT - PLATELET COUNT 115 10^3/uL (130-450); RED BLOOD COUNT 3.72 10^6/uL (4.20-5.40); RED CELL DISTRIBUTION WIDTH 14.2 % (12.0-15.0); WHITE BLOOD COUNT 18.6 x10^3/uL (4.8-10.8)
== END 2022-09-04 23:59 | disposition home or self-care (01) ==
LOC: LAB.R 08:00
DX: N39.0 Urinary tract infection, site not specified (principal); A04.71 Enterocolitis due to Clostridium difficile, recurrent
CPT/HCPCS: 85025; 87493

== ENCOUNTER 2022-09-07 07:55 | Outpatient (CLI) | payer MEDICARE, BC ==
[2022-09-08 08:10] LABS: BILIRUBIN,URINE NEGATIVE (NEGATIVE); GLUCOSE, URINE (UA) 250 mg/dL (NEGATIVE); KETONES,URINE (UA) NEGATIVE (NEGATIVE); LEUKOCYTE ESTERASE, URINE NEGATIVE (NEGATIVE); NITRITE,URINE NEGATIVE (NEGATIVE); OCCULT BLOOD,URINE NEGATIVE (NEGATIVE); PH,URINE 5.5 PH (5.0-7.5); PROTEIN,URINE >=300 mg/dL (NEGATIVE); UROBILINOGEN,URINE 0.2 (NORMAL) E.U./dL (NORMAL)
[2022-09-08 08:23] LABS: CLARITY,URINE SL. CLOUDY (CLEAR)
[2022-09-08 08:24] LABS: BACTERIA,URINE Few /HPF (None Seen); CASTS, URINE 3-5 Granular Casts /LPF; SQUAMOUS EPITHELIAL CELL,UR MANY Squamous (<= Few)
== END 2022-09-07 07:56 | disposition home or self-care (01) ==
LOC: LAB.R 07:55
PROVIDERS: ATTEND Registered Nurse
DX: R30.0 Dysuria (principal)
CPT/HCPCS: 81001; 87086

== ENCOUNTER 2022-09-09 08:00 | Outpatient (CLI) | payer MEDICARE, BC ==
[2022-09-09 09:29] LABS: CREATININE 4.3 mg/dL (0.4-1.0); POTASSIUM 3.8 mmol/L (3.5-5.0)
== END 2022-09-09 23:59 | disposition home or self-care (01) ==
LOC: LAB.R 08:00
PROVIDERS: ATTEND Registered Nurse
DX: I13.0 Hypertensive heart and chronic kidney disease with heart failure and stage 1 through stage 4 chronic kidney disease, or unspecified chronic kidney disease (principal); E11.22 Type 2 diabetes mellitus with diabetic chronic kidney disease
CPT/HCPCS: 80048

== ENCOUNTER 2022-09-19 07:44 | Outpatient (CLI) | payer MEDICARE, BC | END 2022-09-19 07:45 | disposition home or self-care (01) | LOC: LAB 07:44 → LAB.R 07:45 | PROVIDERS: ATTEND Registered Nurse | DX: R56.9 Unspecified convulsions (principal) | CPT/HCPCS: 80177 ==

== ENCOUNTER 2022-10-19 08:00 | Outpatient (CLI) | payer MEDICARE, BC | END 2022-10-19 23:59 | disposition home or self-care (01) | LOC: LAB.WCP 08:00 | PROVIDERS: ATTEND Physician Assistant Medical | DX: R30.0 Dysuria (principal) | CPT/HCPCS: 87086 ==